=== PATIENT | female | born 1955 | race Caucasian/White ===

== ENCOUNTER 2016-08-15 16:03 | Emergency (ER) | payer OTHER ==
[~2016-08-15] VITALS: Ht 154.9 cm; Wt 111.0 kg
[2016-08-15 16:06] VITALS: Ht 154.9 cm; Wt 111.0 kg
[2016-08-15] MEDS ORDERED: SOD CHLORIDE 0.9% 500 ML IV STA (17:12)
[2016-08-15] MEDS ORDERED: ALBUTEROL 0.5% (NEB) 2.5 MG/0.5 ML AMP INH STA (17:12)
[2016-08-15 17:42] LABS: ADD SCAN DIFF NO
[2016-08-15 17:44] LABS: BASOPHIL # 0.1 10^3/ul (0.0-0.1); BASOPHILS % 0.3 % (0.0-2.0); EOSINOPHILS % 0.2 % (0.0-7.0); HEMATOCRIT 39.6 % (37.0-47.0); LYMPHOCYTES # 0.9 10^3/ul (0.8-2.9); LYMPHOCYTES % 5.7 % (15.0-51.0); MEAN CORPUSCULAR HEMOGLOBIN 28.7 pg (29.0-33.0); MEAN CORPUSCULAR HGB CONC 32.8 g/dl (32.0-37.0); MEAN CORPUSCULAR VOLUME 87.4 fl (82.0-101.0); MEAN PLATELET VOLUME 10.5 fl (7.4-10.4); MONOCYTE # 0.1 10^3/ul (0.3-0.9); MONOCYTES % 0.7 % (0.0-11.0); NEUTROPHIL # 14.7 10^3/ul (1.6-7.5); NEUTROPHILS % 90.1 % (39.0-77.0); PLATELET COUNT 129 10^3/UL (140-415); RED BLOOD COUNT 4.53 10^6/ul (4.20-5.40); RED CELL DISTRIBUTION WIDTH 14.9 % (11.5-14.5); WHITE BLOOD COUNT 16.4 10^3/ul (4.8-10.8)
[2016-08-15 18:08] LABS: ALBUMIN 3.9 g/dl (3.3-4.9); CHLORIDE 97 mmol/L (97-110); SODIUM 138 mmol/L (135-144)
[2016-08-15 18:09] LABS: POTASSIUM 4.4 mmol/L (3.5-5.1)
[2016-08-15 18:11] LABS: ALBUMIN/GLOBULIN RATIO 1.21; ALKALINE PHOSPHATASE 156 IU/L (42-121); ANION GAP 16 (8-16); ASPARTATE AMINO TRANSFERASE 29 IU/L (15-46); BILIRUBIN,INDIRECT 0.3 mg/dl (0-1.1); BILIRUBIN,TOTAL 0.3 mg/dl (0.2-1.3); BLOOD UREA NITROGEN 22 mg/dl (7-20); CARBON DIOXIDE 29 mmol/L (21-31); CREATININE 0.88 mg/dl (0.44-1.00); TOTAL PROTEIN 7.1 g/dl (6.1-8.1)
[2016-08-15 18:12] LABS: ALANINE AMINOTRANSFERASE 72 IU/L (13-69); GLUCOSE 217 mg/dl (70-220)
[2016-08-15 18:24] LABS: TROPONIN-I < 0.012 ng/ml (0.00-0.12)
--- NOTE | 2016-08-15 18:49 | RADRPT ---
PROCEDURE: XR Chest. CLINICAL INDICATION: Chest pain. Abdominal pain TECHNIQUE: Portable AP semi erect view of the chest was obtained. COMPARISON: None. FINDINGS: The cardiomediastinal silhouette is within normal limits. The lungs are clear. There is no evidenc e for pleural effusion, pneumothorax or pulmonary vascular congestion. The osseous structures are i ntact with no evidence for acute abnormality. Left internal jugular approach venous access device is present the distal tip pointing to the right in the region of the innominate vein confluence with t he superior vena cava. RPTAT:HJJR IMPRESSION: No evidence for acute intrathoracic pathology. Physician Lowell Date Time Electronically viewed and signed by Physician Lowell on 08/15/2016 18:49 JR/
[2016-08-15 19:15] LABS: AADO2 Arterial 42.3 mmHg (7.0-24.0); Allen Test ACCEPTAB; Arterial COHb 0.2 % (0.0-3.0); Arterial Fraction of Oxyhgb 93.8 % (93.0-99.0); Arterial HCO3 20.2 mmol/L (22.0-26.0); Arterial MetHb 0.3 % (0.0-1.5); Arterial Total Hemglobin 12.5 g/dl (12.0-18.0); MODE ROOM AIR
[2016-08-15] MEDS ORDERED: SOD CHLORIDE 0.9% 1,000 ML IV ONE (19:30)
[2016-08-15] MEDS ORDERED: SOD CHLORIDE 0.9% 100 ML ONE (20:03)
[2016-08-15] MEDS ORDERED: IODIXANOL LOCM 100 ML BTL ONE (20:03)
--- NOTE | 2016-08-15 20:40 | RADRPT ---
PROCEDURE: CT chest with contrast/PE protocol CLINICAL INDICATION: Chest pain and shortness of breath. Clinical concern for pulmonary embolism TECHNIQUE: The study was performed from the thoracic inlet to the upper abdomen with the use of 10 0 cc of Visipaque 320 intravenous contrast material per PE protocol. Coronal/sagittal reformatted im ages and coronal MIP images were generated. The images were reviewed on a PACS workstation. CTDIvol = 74.15 mGy and DLP= 860.18 mGycm. COMPARISON: Chest x-ray 08/15/2016 FINDINGS: Lungs, airway and pleura: The trachea and bronchi are patent as well as normal in caliber. Scatter ed areas of air trapping, relatively hyperlucent lung, are seen bilaterally unable to exclude reacti ve airway disease without evidence of emphysema. Linear areas of scattered subsegmental atelectasis predominate within the lower lobes is present. There is no evidence of pulmonary mass, infiltrate or nodule. The pleural spaces are clear, without effusions. Mediastinum, cele and cardiovascular: The heart is normal in size with prominent pericardial fat. L eft internal jugular vein approach venous access device is present the distal tip projecting near th e junction between the superior vena cava and the innominate vein There is no evidence for pericardi al effusion. The thoracic aorta is normal in caliber and without evidence of dissection, trace athe rosclerotic calcification in the anterior aortic arch is present. There are no filling defects withi n the pulmonary arteries to suggest emboli. There is no evidence for hilar mass and no mediastinal a denopathy is present. The esophagus is normal in caliber. Osseous structures and musculoskeletal findings: There is preservation of bone architecture and min eralization with no evidence for fracture, lytic or blastic lesion. Multilevel bridging osteophytes of the thoracic spine are noted No chest wall abnormalities are present. The axillary regions are unremarkable. Visualized upper abdomen: Cholelithiasis is present. The adrenal glands are normal bilaterally. RPTAT:HJJR IMPRESSION: 1. No evidence of pulmonary embolism or thoracic aortic abnormality other than trace atherosclerotic calcification. 2. Scattered areas of air trapping throughout both lungs and basilar dominant subsegmental atelecta sis bilaterally not evident on portable chest x-ray, reactive airway disease or possibly pneumonitis of concern. 3. Left internal jugular approach venous access device in satisfactory position. 4. Cholelithiasis. 5. Severe thoracic spondylosis. Roque Bains, Physician Date Time Electronically viewed and signed by Roque Bains, Physician on 08/15/2016 20:40 JR/
[2016-08-15] MEDS ORDERED: ALBU8.5H3 INH (21:25)
[2016-08-15] MEDS ORDERED: AZIT500T3 PO (21:25)
--- NOTE | 2016-08-15 21:29 | ERD ---
ER Documentation Chief Complaint Date/Time DATE: 08/15/16 TIME: 21:26 Chief Complaint COUGH , SOB , FEVER , RUNNY NOSE X 2 DAYS HPI 61-year-old woman complains of cough, nasal congestion, shortness of breath and intermittent fevers 2 days. She denies history of asthma but states she has been wheezing and does have a history of HER-2 receptor positive left breast carcinoma, status post chemotherapy. She denies calf or leg swelling, no recent travel, no vomiting or diarrhea, no headache or blurry vision. Patient states she does have chest pain only with coughing. ROS All systems reviewed and are negative except as per history of present illness. Medications Home Meds Active Scripts Azithromycin* (Zithromax*) 500 Mg Tablet, 500 MG PO DAILY for 5 Days, TAB Prov:MATHEUS FALLON MD 08/15/16 Albuterol Sulfate* (Proair HFA*) 8.5 Gm Hfa.aer.ad, 2 PUFF INH Q6H Y for WHEEZING AND SOB, #1 INHALER Prov:MATHEUS FALLON MD 08/15/16 Allergies Allergies: Coded Allergies: Penicillins (Verified Allergy, Unknown, 08/15/16) PMhx/Soc HER-2 receptor positive breast carcinoma status post recent chemotherapy Hx Alcohol Use: No Hx Substance Use: No Hx Tobacco Use: No FmHx Family History: No diabetes Physical Exam Vitals Vital Signs Date Time Temp Pulse Resp B/P Pulse Ox O2 Delivery O2 Flow Rate FiO2 08/15/16 21:37 99.7 102 22 99/55 96 Room Air 08/15/16 21:10 98 2.0 28 08/15/16 17:31 110 19 96 21 08/15/16 16:06 99.7 116 18 108/77 97 Physical Exam GENERAL: Well-developed, well-nourished, febrile, dyspneic HEENT: Moist mucous membranes, pink conjunctiva, no cervical spine tenderness or step-off deformities, no goiter, no jaundice or icterus, extraocular movements intact without pain. No submandibular induration, and no pharyngeal erythema NEURO: Alert and oriented 3, cranial nerves II through XII intact bilaterally, pupils equal round reactive to light, no focal deficits or facial asymmetry, sensation intact distally Strength 5/5 in upper and lower extremities bilaterally CARDIAC: Tachycardic and regular, no murmurs rubs or gallops LUNGS: Scattered wheezes bilaterally, no crackles or stridor ABDOMEN: Soft nontender, no guarding, no rigidity, no rebound, no psoas sign no obturator sign. Normoactive bowel sounds SKIN: Warm and dry to touch, no abrasions, contusions, or hematomas, no lacerations, no ecchymosis, no target lesions, and without ulcers EXTREMITIES: No clubbing cyanosis or edema, calves are bilaterally symmetrical, no Homans sign, no popliteal cord sign. Distal pulses equal and bilateral PSYCH: Normal affect without agitation or irritability Result Diagram: 08/15/16 1720 08/15/16 1720 Results 24 hrs Laboratory Tests Test 08/15/16 17:12 08/15/16 17:20 Blood Gas Specimen Source Blood arterial Arterial Blood Date Drawn 08/15/2016 7:05:21 PM Arterial Blood pH (Temp corrected) 7.435 Arterial Blood pCO2 (Temp correct) 30.8mmhg Arterial Blood pO2 (Temp corrected) 70.5mmHG Arterial Blood HCO3 20.2mmol/L Arterial Blood Base Excess -3.0mmol/L Arterial Blood Oxygen Saturation 94.3mmHG Philip Test ACCEPTAB Arterial Blood Gas Puncture Site Right Radial Arterial Blood Carboxyhemoglobin 0.2% Arterial Blood Methemoglobin 0.3% Blood Gas A-a O2 Differential 42.3mmHg Oxyhemoglobin Percent 93.8% Total Hemoglobin 12.5g/dl Blood Gas Temperature 37.0C Blood Gas Actual Respiration Rate 32 Blood Gas Modality ROOM AIR FiO2 21.0% Blood Gas Critical Value Read Back Ronald MANN Blood Gas Notified Whom BL Blood Gas Notified Time 08/15/2016 7:15:04 PM White Blood Count 16.410^3/ul Red Blood Count 4.5310^6/ul Hemoglobin 13.0g/dl Hematocrit 39.6% Mean Corpuscular Volume 87.4fl Mean Corpuscular Hemoglobin 28.7pg Mean Corpuscular Hemoglobin Concent 32.8g/dl Red Cell Distribution Width 14.9% Platelet Count 79650^3/UL Mean Platelet Volume 10.5fl Neutrophils % 90.1% Lymphocytes % 5.7% Monocytes % 0.7% Eosinophils % 0.2% Basophils % 0.3% Nucleated Red Blood Cells % 0.0/100WBC Neutrophils # 14.710^3/ul Lymphocytes # 0.910^3/ul Monocytes # 0.110^3/ul Eosinophils # 0.010^3/ul Basophils # 0.110^3/ul Nucleated Red Blood Cells # 0.010^3/ul Differential Comment AUTO w/SCAN Sodium Level 138mmol/L Potassium Level 4.4mmol/L Chloride Level 97mmol/L Carbon Dioxide Level 29mmol/L Anion Gap 16 Blood Urea Nitrogen 22mg/dl Creatinine 0.88mg/dl Glucose Level 217mg/dl Calcium Level 9.0mg/dl Total Bilirubin 0.3mg/dl Direct Bilirubin 0.00mg/dl Indirect Bilirubin 0.3mg/dl Aspartate Amino Transf (AST/SGOT) 29IU/L Alanine Aminotransferase (ALT/SGPT) 72IU/L Alkaline Phosphatase 156IU/L Troponin I < 0.012ng/ml Total Protein 7.1g/dl Albumin 3.9g/dl Globulin 3.20g/dl Albumin/Globulin Ratio 1.21 Lipase 98U/L Current Medications Medications (Trade) Dose Ordered Sig/Yemi Route PRN Reason Start Time Stop Time Status Last Admin Dose Admin Sodium Chloride (NS) 500 ml @ 500 mls/hr Q1H STAT IV 08/15/16 17:12 08/15/16 18:11 DC 08/15/16 17:30 Albuterol 10 mg 10 mg ONCE STAT INH 08/15/16 17:12 08/15/16 17:15 DC 08/15/16 17:27 Sodium Chloride (NS) 1,000 ml @ 1,000 mls/hr Q1H ONCE IV 08/15/16 19:30 08/15/16 20:29 DC 08/15/16 20:08 IV Flush 10 ml 10 ml STK-MED ONCE .ROUTE 08/15/16 20:03 08/15/16 20:04 DC Sodium Chloride (NS) 100 ml @ ud STK-MED ONCE .ROUTE 08/15/16 20:03 08/15/16 20:04 DC Iodixanol (Visipaque Locm) 100 ml STK-MED ONCE .ROUTE 08/15/16 20:03 08/15/16 20:04 DC Procedures/MDM IV line was established patient was placed on satellite project site monitor rhythm strip revealed a sinus tachycardia at 100 bpm with upright P and T waves. Patient was febrile. EKG performed, read by me: 98 bpm, normal sinus rhythm, normal axis, no acute ST segment changes, narrow QRS complex, with good R-wave progression in precordial leads. Chest X-ray 1V Interpreted by me: Soft Tissue: No acute abnormalities Bones: No acute abnormalities Mediastinum/Cardiac Silhouette/Lungs: No acute abnormalities CBC reveals a leukocytosis of 16, electrolytes revealed dehydration with a BUN/ creatinine of 22/0.9, liver function tests were normal, troponin was negative. ABG reveals a pH of 7.44, PCO2 31, PO2 71 and unremarkable. I treated her here with 1 L normal saline intravenously and albuterol 10 mg via nebulizer. Given her respiratory symptoms and history of chemotherapy and breast cancer my concern was pulmonary embolism. CT angiogram of the chest was performed that was negative for pulmonary embolism or acute vascular abnormalities. Please refer to radiologist dictation for full report. Patient was treated here with IV fluids and bronchodilators, imaging studies were unremarkable, and saturation is 96% and normal. Patient states she feels much better and has no fever, chest pain, or shortness of breath at this time. Differential diagnoses considered, included but not limited to acute coronary syndrome, pulmonary embolism, aortic dissection, abdominal aortic aneurysm, sepsis, stroke, meningitis, encephalitis, pneumonia, appendicitis, cholecystitis , bowel obstruction, pyelonephritis, nephrolithiasis, cystitis, as well as metabolic, hematologic, and electrolyte abnormalities. As well as abscess, cellulitis, fractures, and dislocations. Patient feels much better at this time, and vital signs are normal, symptoms have improved. I did give strict instructions to return to the ED if symptoms continue or worsen, patient will otherwise follow-up with primary care physician. Patient understood instructions and agreed to plan. Departure Diagnosis: Primary Impression: Upper respiratory infection URI type: acute nasopharyngitis (common cold) Qualified Code: J00 - Acute nasopharyngitis Additional Impressions: Acute bronchitis Bronchitis organism: unspecified organism Qualified Code: J20.9 - Acute bronchitis, unspecified organism Breast carcinoma Laterality: left Qualified Code: C50.912 - Carcinoma of left breast Condition: Good Patient Instructions: Bronchitis With Wheezing (Adult) MATHEUS FALLON MD August 15, 2016 21:29
[2016-08-15 21:37] VITALS: BP 99/55; PULSE 102; RESP 22; TEMP 99.7
== END 2016-08-15 21:40 | disposition home or self-care (01) ==
LOC: FTE 16:03
DX: J00 Acute nasopharyngitis [common cold] (principal); J20.9 Acute bronchitis, unspecified; C50.912 Malignant neoplasm of unspecified site of left female breast; R06.02 Shortness of breath
CPT/HCPCS: 36415; 36600; 71010; 71275; 80053; 82803; 83690; 84484; 85025; 93005; 94644; J7030; J7040; Q9967; Z7502; Z7610

== ENCOUNTER 2016-12-10 08:57 | Observation (INO) | payer OTHER ==
[2016-12-10] VITALS (14 sets, daily range): BP systolic 95–140; BP diastolic 52–73; PULSE 70–89; RESP 16–24; Ht 154.9 cm; Wt 111.7 kg
[~2016-12-10] VITALS: Ht 154.9 cm; Wt 111.7 kg
[~2016-12-10 08:57] MED LIST: ALBU8.5H3 INH; AZIT500T3 PO; SOD CHLORIDE 0.9% 1,000 ML IV SCH; VANCOMYCIN 1 GM in NS 250 ML IVPB ONE
[2016-12-10] MEDS ORDERED: METF1000 PO (11:00)
--- NOTE | 2016-12-10 11:08 | RADRPT ---
PROCEDURE: Chest Radiograph. CLINICAL INDICATION: Preop TECHNIQUE: Single frontal chest radiograph. COMPARISON: Chest radiograph 08/15/2016 FINDINGS: A left chest wall port infusion catheter remains in place. The cardiomediastinal silhouette is withi n normal limits. No infiltrate or effusion is seen. The bones are intact. IMPRESSION: 1. No evidence of acute cardiopulmonary disease. 2. Left chest wall port infusion catheter. RPTAT: KK .Khanh Schmid MD, MD Date Time Electronically viewed and signed by .Khanh Schmid MD, on 12/10/2016 11:07 .B/
[2016-12-10 11:22] LABS: BASOPHILS % 0.4 % (0.0-2.0); EOSINOPHILS # 0.1 10^3/ul (0.0-0.5); EOSINOPHILS % 1.2 % (0.0-7.0); HEMATOCRIT 40.2 % (37.0-47.0); HEMOGLOBIN 13.5 g/dl (12.0-16.0); LYMPHOCYTES # 1.6 10^3/ul (0.8-2.9); LYMPHOCYTES % 32.5 % (15.0-51.0); MEAN CORPUSCULAR HEMOGLOBIN 30.6 pg (29.0-33.0); MEAN CORPUSCULAR HGB CONC 33.6 g/dl (32.0-37.0); MEAN CORPUSCULAR VOLUME 91.2 fl (82.0-101.0); MEAN PLATELET VOLUME 9.7 fl (7.4-10.4); MONOCYTE # 0.3 10^3/ul (0.3-0.9); MONOCYTES % 6.8 % (0.0-11.0); NEUTROPHILS % 58.9 % (39.0-77.0); PLATELET COUNT 174 10^3/UL (140-415); RED BLOOD COUNT 4.41 10^6/ul (4.20-5.40); RED CELL DISTRIBUTION WIDTH 12.9 % (11.5-14.5)
[2016-12-10 11:36] LABS: INR 0.9; PROTIME 12.1 Sec (12.2-14.2); PT RATIO 0.9
[2016-12-10 11:37] LABS: PARTIAL THROMBOPLASTIN TIME 25.8 Sec (25.0-35.0)
[2016-12-10 11:38] LABS: ALBUMIN 3.8 g/dl (3.3-4.9); ALBUMIN/GLOBULIN RATIO 1.22; BILIRUBIN,INDIRECT 0.2 mg/dl (0-1.1); BILIRUBIN,TOTAL 0.2 mg/dl (0.2-1.3); CALCIUM 9.3 mg/dl (8.4-10.2); CREATININE 0.71 mg/dl (0.44-1.00); POTASSIUM 4.5 mmol/L (3.5-5.1); TOTAL PROTEIN 6.9 g/dl (6.1-8.1)
[2016-12-10] MEDS ORDERED: ISOSULFAN BLUE 1% 5 ML INJ SC ONE (11:52)
[2016-12-10] MEDS ORDERED: ONDANSETRON 4 MG INJ IV PRN ×2 (12:00→14:00)
[2016-12-10] MEDS ORDERED: MEPERIDINE 25 MG INJ IV PRN (12:00)
[2016-12-10] MEDS ORDERED: DIPHENHYDRAMINE 50 MG INJ IV PRN (12:00)
[2016-12-10] MEDS ORDERED: PROCHLORPERAZINE 10 MG INJ IV PRN (12:00)
[2016-12-10] MEDS ORDERED: HYDROmorphONE (0.2 MG/ML) 10ML SYG IV PRN (12:00)
[2016-12-10] MEDS ORDERED: FENTAnyl 50 MCG/ML VIAL IV PRN (12:00)
[2016-12-10] MEDS ORDERED: OXYCODONE/ACETAMINOPHEN (5/325) TAB PO PRN ×2 (12:00)
[2016-12-10] MEDS ORDERED: LIDOCAINE 2% (SDV) 5 ML INJ ONE (12:24)
[2016-12-10] MEDS ORDERED: MIDAZOLAM 1 MG/ML 2 ML INJ ONE (12:24)
[2016-12-10] MEDS ORDERED: PROPOFOL 20 ML ONE (12:24)
[2016-12-10] MEDS ORDERED: ONDANSETRON 4 MG INJ ONE (12:35)
[2016-12-10] MEDS ORDERED: METOCLOPRAMIDE 10 MG INJ ONE (12:35)
[2016-12-10] MEDS ORDERED: FENTAnyl 50 MCG/ML VIAL ONE (12:39)
[2016-12-10] MEDS ORDERED: PHENYLephrine (100 MCG/ML) 5ML SYG ONE (12:57)
[2016-12-10] MEDS ORDERED: HYDROmorphONE 2 MG/ML SYG ONE (13:31)
[2016-12-10] MEDS ORDERED: morphine 2 MG INJ IV PRN (14:00)
[2016-12-10] MEDS ORDERED: ACETAMINOPHEN 1000MG/100ML IV 100 ML IVPB PRN (14:00)
[2016-12-10] MEDS ORDERED: EPHEDrine SULFATE 50 MG/5 ML SYG ONE (14:44)
[2016-12-10] MEDS ORDERED: CEFAZOLIN 1 GM INJ ONE (14:44)
--- NOTE | 2016-12-10 15:00 | OPR ---
DATE OF OPERATION: 12/10/2016 PREOPERATIVE DIAGNOSIS: Locally advanced right breast cancer. POSTOPERATIVE DIAGNOSIS: Locally advanced right breast cancer. OPERATIVE PROCEDURE: Needle-directed right partial mastectomy and axillary dissection utilizing sentinel lymph node technique. ANESTHESIA: General. ANESTHESIOLOGIST: . SURGEON: Dr. Kelvin Ramires. BRAND DIRECTOR: Dr. Alexander Jacobs. INDICATIONS FOR PROCEDURE: Patient is an unfortunate 61-year-old female presented with a large mass in her right breast. It was found that her tumor was HER2 positive. She was referred for neoadjuvant chemotherapy. She had a very good response based on both clinical exam and radiographic findings. She was counseled as to the possibility of breast conservation. She wished to proceed in that fashion. She was consented for surgery. OPERATIVE PROCEDURE: On the morning of surgery patient presented to [facility] where she underwent localization of the lesion performed by attending [facility] radiologist Dr. Julian Stephens. Subsequently, she was brought to the operating theater, placed under general endotracheal tube anesthesia. The right breast and axillary region was prepped and draped in usual sterile fashion. Approximately 4 mL of 1 percent Lymphazurin blue dye were then injected peritumorally and the breast was gently massaged for approximately 12 minutes. At this point, a 4 cm incision was made in the right axillary hairline. A large amount subcutaneous adipose tissue was dissected with cautery down through the clavipectoral fascia. After several minutes, an attempt was made to locate dye stained lymphatic, but dye stained lymphatic was not identified, presumably based on obliteration from the previously administered neoadjuvant chemotherapy. Therefore, Dr. Ramires proceeded with a level 1 lymph node dissection with broad dissection along the chest wall. The long thoracic nerve was identified and kept out of harm's way. More superiorly, the axillary vein and thoracodorsal neurovascular bundles were identified and kept out of harm's way. Level 1 node bearing tissue was then resected using LigaSure device. It was sent intraoperatively for examination by attending pathologist, Dr. Bear Hook who identified at least 4, possibly more lymph nodes. Therefore, Dr. Ramires felt that these dissection was adequate. The specimen was then sent for permanent pathologic analysis. The wound was irrigated. Minimal bleeding was controlled with cautery. A number 10 flat Link-Mckinney drain was then brought through the right mid axillary line, cut to size and laid within the axilla. It was secured in place with 2-0 nylon suture in the standard fashion. A skin incision was then reapproximated with 4-0 Vicryl suture in subcuticular fashion. Dermabond was applied. Attention was then directed to performing the partial mastectomy. The previously placed localization wire was in the outer lower quadrant. An extended into the central area of the breast and a radial incision was made in this area and subcutaneous tissue was dissected with cautery. The skin edges were elevated with skin hooks and wide circumferential dissection of the tissue associated with wire took place taking great care to ensure adequate margin. Specimen was transected, oriented and sent for radiographic confirmation of capture of the clip. Capture was confirmed. The specimen was then sent for permanent pathologic analysis. The wound was irrigated. Minimal bleeding was controlled with cautery. The skin was then reapproximated with a 4-0 Vicryl suture in subcuticular fashion. Dermabond was applied. The patient tolerated procedure well. ESTIMATED BLOOD LOSS: Was approximately 30 cc. COMPLICATIONS: There were no complications. DISPOSITION: The patient was transported in stable condition to the recovery room where a circumferential compression dressing was applied. Dictated By: Kelvin Ramires MD /[email or web address]/karishma /Document#: [id number]
[2016-12-10] MEDS: D5W-0.45 NACL + KCL 20 MEQ 1,000 ML IV SCH (15:33)
--- NOTE | 2016-12-10 19:37 | RADRPT ---
Vent Rate: 74 bpm RR Interval: 0 msec MA Interval: 134 msec QRS Duration: 84 msec QT Interval: 384 msec QTC Interval: 426 msec P-R-T [place]: 37 - 9 - 30 degrees Normal sinus rhythm Low voltage QRS Borderline ECG Electronically Signed By: Miles Pop [id number]
[2016-12-10] MEDS: INSULIN ASPART [NOVOLOG] 3 ML PEN SC SCH (22:05)
[2016-12-10] MEDS ORDERED: GLUCOSE GEL 15 GRAM TUBE PO PRN ×2 (22:30)
[2016-12-10] MEDS ORDERED: GLUCOSE GEL 15 GRAM TUBE BUCCAL PRN (22:30)
[2016-12-10] MEDS ORDERED: DEXTROSE 50% 50 ML SYRINGE IV PRN ×2 (22:30)
[2016-12-10] MEDS ORDERED: GLUCAGON 1 MG INJ IM PRN (22:30)
[2016-12-11] MEDS: D5W-0.45 NACL + KCL 20 MEQ 1,000 ML IV SCH (00:40)
[2016-12-11] MEDS ORDERED: ACCU-CHEK XX SCH (02:00)
[2016-12-11 02:51] VITALS: BP 126/59; RESP 20
[2016-12-11] MEDS: INSULIN ASPART [NOVOLOG] 3 ML PEN SC SCH ×2 (07:58→12:00)
[2016-12-11 08:00] VITALS: BP 126/59; RESP 18
--- NOTE | 2016-12-11 12:17 | PN ---
Date/Time of Note Date/Time of Note DATE: 12/11/16 TIME: 12:11 Assessment/Plan VTE Prophylaxis VTE Prophylaxis Intervention: ambulation, SCD's Lines/Catheters IV Catheter Type (from Nrs): Peripheral IV Assessment/Plan Assessment/Plan 61-year-old female with: 1. Breast CA, status post partial right mastectomy with lymph node dissection. Patient doing well today, postoperative day #1. She will be discharged home with follow-up with Dr. Ramires as an outpatient. Follow-up with outpatient oncology. 2. Diabetes mellitus: resume metformin at home, patient has requested a prescription for glucometer. He needs to follow-up with her primary care physician for further care. Prophylaxis: Ambulatory and tolerating p.o. Disposition: Discharge home today, follow-up with Dr. Ramires outpatient within 1- 2 weeks. Follow-up with primary care physician within 1 week Subjective 24 Hr Interval Summary Free Text/Dictation Patient doing well, postoperative day #1 status post right partial mastectomy with lymph node dissection by Dr. Ramires. Patient has been seen by Dr. Jacobs this morning and stable for discharge. Exam/Review of Systems Vital Signs Vitals Vital Signs Date Time Temp Pulse Resp B/P Pulse Ox O2 Delivery O2 Flow Rate FiO2 12/11/16 08:00 98.8 86 18 126/59 96 12/10/16 14:50 Nasal Cannula 2.0 Intake and Output 12/10/16 12/10/16 12/11/16 14:59 22:59 06:59 Intake Total 1000 ml 650 ml 2250 ml Output Total 5 ml 0 ml 115 ml Balance 995 ml 650 ml 2135 ml Exam Constitutional: alert, oriented, well developed Respiratory: clear to auscultation, normal air movement Cardiovascular: nl pulses, regular rate and rhythm Gastrointestinal: non-tender, soft Musculoskeletal: nl extremities to inspection Extremities: normal pulses, other (No edema, clubbing or cyanosis) Neurological: BIOLOGICAL AIDE II-XII intact, nl mental status, nl speech, nl strength Additional Comments Status post right partial mastectomy with lymph node dissection Results Result Diagram: 12/10/16 1110 12/10/16 1110 Results 24 hrs Laboratory Tests Test 12/10/16 22:05 12/11/16 07:53 12/11/16 11:57 Bedside Glucose 149 138 141 Medications Medications Current Medications Sodium Chloride (NS) 1,000 ml @ 75 mls/hr [id number] IV ; Start 12/10/16 at 07:00 Ondansetron HCl 4 mg 4 mg Q6H PRN IV NAUSEA AND/OR VOMITING; Start 12/10/16 at 14:00 Potassium Chloride/Dextrose/ Sod Cl (D5-1/2ns + KCl 20 Meq) 1,000 ml @ 125 mls/ hr Q8H IV Last administered on 12/11/16t 00:40; Admin Dose 125 MLS/HR; Start 12/10/16 at 13:54 Morphine Sulfate 2 mg 2 mg Q1H PRN IV PAIN; Start 12/10/16 at 14:00 Acetaminophen (Ofirmev 1000mg/ 100ml Iv) 100 ml @ 400 mls/hr Q6H PRN IVPB PAIN ; Start 12/10/16 at 14:00 Diagnostic Test (Pha) (Accu-Chek) 1 ea 02 XX ; Start 12/11/16 at 02:00 Miscellaneous Information 1 ea NOTE XX ; Start 12/10/16 at 22:30 Glucose (Glutose) 15 gm Q15M PRN PO DECREASED GLUCOSE; Start 12/10/16 at 22:30 Glucose (Glutose) 22.5 gm Q15M PRN PO DECREASED GLUCOSE; Start 12/10/16 at 22:30 Dextrose (D50w Syringe) 25 ml Q15M PRN IV DECREASED GLUCOSE; Start 12/10/16 at 22:30 Dextrose (D50w Syringe) 50 ml Q15M PRN IV DECREASED GLUCOSE; Start 12/10/16 at 22:30 Glucagon (Glucagen) 1 mg Q15M PRN IM DECREASED GLUCOSE; Start 12/10/16 at 22:30 Glucose (Glutose) 15 gm Q15M PRN BUCCAL DECREASED GLUCOSE; Start 12/10/16 at 22: 30 CHRISTIANO URIOSTEGUI Dec 11, 2016 12:17
--- NOTE | 2016-12-11 12:19 | PDOCDIS ---
Discharge Instructions CONDITION Patient Condition: Stable HOME CARE INSTRUCTIONS: Special Diet: ADA diet ACTIVITY: Activity Restrictions: Avoid heavy lifting Do not operate Machinery Avoid Heavy Housework FOLLOW UP/APPOINTMENTS Follow-up Plan Follow-up with Dr Ramires in 1-2 weeks Follow-up with primary care physician within 1 week CHRISTIANO URIOSTEGUI Dec 11, 2016 12:19
--- NOTE | 2016-12-11 15:23 | PN ---
DATE: 12/11/2016 Postoperative day number 1. OPERATION: Right breast partial mastectomy with axillary dissection. SUBJECTIVE: No complaint, has been out of bed walking around, tolerating diet, minimal pain. OBJECTIVE: VITAL SIGNS: Stable. Temperature 98.8, heart rate 79 and 86, respiration 18, blood pressure 126/59, saturation 96 percent room air. LINK-MCKINNEY DRAIN IN THE LAST 24 HOURS HAS DRAINED: 1. 75 mL. 2. 40 mL. The content of the tubing and Link-Mckinney drain is serosanguineous color. Dressing is intact. We had to readjust the outer dressing. ASSESSMENT: A 61-year-old female, status post neoadjuvant chemotherapy and also status post right partial mastectomy, needle directed, and axillary dissection yesterday was done. The patient is stable, vital signs stable. Link-Mckinney is not bleeding. PLAN: The patient can be discharged home today. The instruction for taking care of the Link-Mckinney was given to the patient by me and by the RN, Michelle. The patient to call Dr. Ramires's office and make an appointment for followup. Dictated By: Alexander Jacobs MD /[email or web address] /Document#: [id number] BRENNEN
--- NOTE | 2016-12-11 15:27 | DS ---
Date/Time of Note Date/Time of Note DATE: 12/11/16 TIME: 15:24 Discharge Summary Admission/Discharge Info Admit Date/Time Dec 10, 2016 at 14:59 Discharge Date/Time Dec 11, 2016 at 14:12 Patient Condition: Good Consults Internal medicine Procedures Status post right partial mastectomy with lymph node dissection Hx of Present Illness 61-year-old female with a reported right breast cancer and also diabetes mellitus, was brought in by Dr. Ramires for elective partial right mastectomy with lymph node dissection. Hospital Course Patient had an uneventful procedure, she was kept overnight for pain control and observation. She is being discharged today after being seen by Dr. Jacobs who is covering for Dr. Ramires this morning. Patient already has her pain medications at home. She was provided with a prescription for glucometer. Home Meds Reported Medications Metformin Hcl* (Metformin Hcl*) 1,000 Mg Tablet, 1000 MG PO WITH BREAKFAST DINNE , #30 TAB 12/10/16 Discontinued Scripts Azithromycin* (Zithromax*) 500 Mg Tablet, 500 MG PO DAILY for 5 Days, TAB Prov:MATHEUS FALLON MD 08/15/16 Albuterol Sulfate* (Proair HFA*) 8.5 Gm Hfa.aer.ad, 2 PUFF INH Q6H Y for WHEEZING AND SOB, #1 INHALER Prov:MATHEUS FALLON MD 08/15/16 Follow-up Plan Follow-up with primary care physician within 1 week Follow-up with Dr. Ramires in 1 week Primary Care Provider Jeny Rizvi MD Time spent on discharge: > 30 minutes Pending Labs Laboratory Tests Test 12/10/16 22:05 12/11/16 07:53 12/11/16 11:57 Bedside Glucose 149mg/dL (70-220) 138mg/dL (70-220) 141mg/dL (70-220) CHRISTIANO URIOSTEGUI Dec 11, 2016 15:27
== END 2016-12-11 14:12 | disposition home or self-care (01) ==
LOC: SDS 08:57 → PP2 14:59 → SDS 23:33
PROVIDERS: ADMIT Surgery Surgical Oncology; ATTEND Surgery Surgical Oncology
DX: D05.11 Intraductal carcinoma in situ of right breast (principal); D18.09 Hemangioma of other sites; E11.9 Type 2 diabetes mellitus without complications; Z79.84 Long term (current) use of oral hypoglycemic drugs
CPT/HCPCS: 19301; 38525; 38900; 71010; 80053; 82962; 85025; 85610; 85730; 88307; 93005; J0690; J1170; J1815; J2250; J2370; J2405; J2765; J3010; J3480; J7030; Z7500; Z7512; Z7610; G0378; Q9968

== ENCOUNTER 2017-05-08 22:51 | Emergency (ER) | END 2017-05-09 05:55 | disposition home or self-care (01) ==

== ENCOUNTER 2018-12-05 12:03 | Emergency (ER) | payer OTHER ==
[~2018-12-05] VITALS: Ht 154.9 cm; Wt 114.4 kg
[~2018-12-05 12:03] MED LIST changes: +ACET500C5 PO; -ALBU8.5H3 INH; +ALBU8.5H8 INH; +ANAS1TAB PO; +ATOR40TA68 PO; -AZIT500T3 PO; +CETI10CA PO; +ERGO500013 PO; +GUAI120S25 PO; +IBUP-1542 PO; +LEVO750T25 PO; +LOSA25TA12 PO; +METF100010 PO; +METF850T13 PO; +NABU-81 PO; -SOD CHLORIDE 0.9% 1,000 ML IV SCH; +TRAM50TA2 PO; -VANCOMYCIN 1 GM in NS 250 ML IVPB ONE
[2018-12-05 12:07] VITALS: Ht 154.9 cm; Wt 114.4 kg
[2018-12-05] MEDS ORDERED: HYDROCODONE/APAP (10/325) TAB PO ONE (15:00)
[2018-12-05 17:59] VITALS: BP 133/82; PULSE 76; RESP 18
== END 2018-12-05 18:02 | disposition home or self-care (01) ==
LOC: E/R 12:03
DX: R10.32 Left lower quadrant pain (principal); E11.9 Type 2 diabetes mellitus without complications; F17.210 Nicotine dependence, cigarettes, uncomplicated; Z85.3 Personal history of malignant neoplasm of breast; Z79.84 Long term (current) use of oral hypoglycemic drugs
CPT/HCPCS: 74176; 80053; 81001; 83690; 85025; Z7502; Z7610